=== PATIENT | female | born 1965 | race Caucasian/White ===

== ENCOUNTER → 2016-10-05 | Outpatient (CLI) | payer MEDICARE, MEDICAID ==
[~2016-10-05] MED LIST: ISOVUE-370 76% 100ML VIAL (Q9967) As Ordered ONE
--- NOTE | 2016-10-05 14:40 | REP ---
CT NECK WITH CONTRAST: HISTORY: Dysphonia. CONTRAST: Isovue 370, 75 mL. COMPARISON: 12/24/2015. Increased density is present in the preepiglottic , paralaryngeal and retropharyngeal spaces. There is thickening of the epiglottic and aryepiglottic folds. These findings are consistent with postradiation change. There is slight thickening of the lateral go of the hypopharynx. There is minimal mass effect on the airway. The nasopharynx and subglottic trachea are normal in appearance. The salivary and thyroid glands are normal. Small lymph nodes less than 1 cm in size are present in the internal jugular chains, posterior triangles, submandibular and submental areas. There is no adenopathy. Calcified atherosclerotic plaques are present at the carotid bifurcations. A 1.6 cm tracheal diverticulum is present along the right lateral aspect of the trachea and esophagus inferior to the thyroid gland. The lung apices are clear. The visualized sinuses are clear. IMPRESSION: 1. There are findings consistent with postradiation change. 2. There is slightly thickening of the lateral go of the hypopharynx that is suspicious for recurrent tumor. Signed by Ugo Estrada MD 10/05/2016 02:46 P
== END ==
LOC: M RAD 12:37
PROVIDERS: ATTEND Otolaryngology
DX: R93.8 Abnormal findings on diagnostic imaging of other specified body structures (principal); R49.0 Dysphonia
CPT/HCPCS: 70491; Q9967

== ENCOUNTER → 2016-11-04 | Day surgery (SDC) | payer MEDICARE, MEDICAID ==
[~2016-11-04] VITALS: Ht 160 cm; Wt 56.2 kg
[~2016-11-04] MED LIST changes: -ISOVUE-370 76% 100ML VIAL (Q9967) As Ordered ONE; +LIDOCAINE 2% INJ 100 MG/5 ML SDV (FOR ANES.) As Ordered ONE; +LR 1,000 ML IV SCH; +LYRI225C PO; +METH10TA2 PO; +METOCLOPRAMIDE INJ 10MG/2ML VIAL (J2765) IV PRN; +MIDAZOLAM INJ 2 MG/2 ML VIAL (J2250) As Ordered ONE; +OMEP40CA2 PO; +ONDANSETRON 4MG/2ML VIAL (J2405) As Ordered ONE; +ONDANSETRON 4MG/2ML VIAL (J2405) IV PRN; +PERC10TA17 PO; +PERCOCET 5MG/325MG TAB PO PRN; +PROPOFOL 200 MG/20 ML VIAL As Ordered ONE; +ROCURONIUM BROMIDE 50 MG/5 ML VIAL As Ordered ONE; +SUCCINYLCHOLINE 100 MG/5 ML SYRINGE (J0330) As Ordered ONE; +SUGAMMADEX SODIUM 500 MG/5 ML VIAL (BRIDION) As Ordered ONE; +ZOFR20TA PO; +dexameTHASONE 4 MG/ML 1ML VIAL (J1100) IV ONE; +ePHEDrine SULFATE 25 MG/5 ML(5MG/ML) SYRINGE As Ordered ONE; +fentaNYL 100 MCG/2 ML INJECTION (J3010) As Ordered ONE; +fentaNYL 250 MCG/5 ML INJECTION (J3010) As Ordered ONE
[2016-11-04] MEDS: LR 1,000 ML IV SCH ×2 (10:44→10:50)
[2016-11-04] MEDS: fentaNYL 100 MCG/2 ML INJECTION (J3010) IV PRN ×3 (13:30→13:50)
[2016-11-04 14:30] VITALS: BP 135/91
--- NOTE | 2016-11-05 20:52 | RO ---
DATE OF PROCEDURE: 11/04/2016 PREPROCEDURE DIAGNOSIS: Swelling of the left pharyngeal wall and also history of epiglottic squamous cell carcinoma, treated with chemo and radiation in 2010. Dysphonia. POSTPROCEDURE DIAGNOSIS: Swelling of the left pharyngeal wall and also history of epiglottic squamous cell carcinoma, treated with chemo and radiation in 2010. Dysphonia. PROCEDURE: Direct suspension microlaryngoscopy with biopsy of the left and right vocal cords and left aryepiglottic fold. SURGEON: Dr. Keo George PRODUCTION INSPECTOR: ANESTHESIA: General. CLINICAL PREAMBLE: This 50-year-old woman has had chemoradiation for epiglottic cancer in 2010. She was noted to have intermittent dysphonia. CT neck revealed fullness of the left pharyngeal wall. Management options including surgery listed above have been discussed. The patient understood and consented to the procedure. DESCRIPTION OF PROCEDURE: The patient was identified in preoperative holding and brought to the operating room in stable condition. In supine position on the operating table, general anesthesia was induced followed by orotracheal intubation without incident. The patient was prepped and draped in the usual fashion for the procedure. Bimanual palpation of the oral cavity and oropharynx, lateral and posterior pharyngeal wall revealed no discrete palpable nodule. The alveolar ridge was then protected using wet sponge. The Dedo-Pilling laryngoscope was introduced. Visualization of the mucosa of the oral cavity and oropharynx were unremarkable. Base of tongue appeared to be free of mucosal lesion. The supraglottis was noted to be erythematous consistent with postradiation changes. A small mucosal tear was noted over the left aryepiglottic fold. This was biopsied. The rigid laryngoscope was suspended on the Aden stand. Both vocal cords were found to be mildly erythematous. Biopsy was performed from the left and the right vocal cord as well. Both pyriform sinuses show evidence of redundant mucosa with no evidence of mucosal lesion or mass lesion. The postcricoid region was also free of mucosal lesion as well. Complete hemostasis was observed by placing cottonoid pledgets soaked in Afrin solution, placed on the biopsy sites. Photo documentation was also performed during the procedure with the use of a 5 mm 0-degree telescope. At the end of the procedure, sponge and instrument counts were correct. No complication was encountered. Estimated blood loss was less than 2 mL. General anesthesia was reversed and the patient was extubated and brought to the recovery room in stable condition. LETICIA
== END | disposition home or self-care (01) ==
LOC: M SDC 09:55
PROVIDERS: ATTEND Otolaryngology
DX: R22.1 Localized swelling, mass and lump, neck (principal); R49.0 Dysphonia; Z72.0 Tobacco use; J44.9 Chronic obstructive pulmonary disease, unspecified; K70.9 Alcoholic liver disease, unspecified; F10.10 Alcohol abuse, uncomplicated; Z85.21 Personal history of malignant neoplasm of larynx; Z92.3 Personal history of irradiation; Z92.21 Personal history of antineoplastic chemotherapy; K21.9 Gastro-esophageal reflux disease without esophagitis; Z79.899 Other long term (current) drug therapy
CPT/HCPCS: 31536; 88305; J0330; J1100; J2250; J2405; J3010

== ENCOUNTER 2017-02-04 12:00 | Outpatient (RCR) | payer MEDICARE, MEDICAID ==
[~2017-02-04 12:00] MED LIST changes: -LIDOCAINE 2% INJ 100 MG/5 ML SDV (FOR ANES.) As Ordered ONE; -LR 1,000 ML IV SCH; -METOCLOPRAMIDE INJ 10MG/2ML VIAL (J2765) IV PRN; -MIDAZOLAM INJ 2 MG/2 ML VIAL (J2250) As Ordered ONE; -ONDANSETRON 4MG/2ML VIAL (J2405) As Ordered ONE; -ONDANSETRON 4MG/2ML VIAL (J2405) IV PRN; -PERC10TA17 PO; +PERC10TA26 PO; -PERCOCET 5MG/325MG TAB PO PRN; -PROPOFOL 200 MG/20 ML VIAL As Ordered ONE; -ROCURONIUM BROMIDE 50 MG/5 ML VIAL As Ordered ONE; -SUCCINYLCHOLINE 100 MG/5 ML SYRINGE (J0330) As Ordered ONE; -SUGAMMADEX SODIUM 500 MG/5 ML VIAL (BRIDION) As Ordered ONE; -dexameTHASONE 4 MG/ML 1ML VIAL (J1100) IV ONE; -ePHEDrine SULFATE 25 MG/5 ML(5MG/ML) SYRINGE As Ordered ONE; -fentaNYL 100 MCG/2 ML INJECTION (J3010) As Ordered ONE; -fentaNYL 250 MCG/5 ML INJECTION (J3010) As Ordered ONE
== END 2017-02-25 ==
LOC: M ST 12:00
PROVIDERS: ATTEND Otolaryngology
DX: R49.0 Dysphonia (principal)

== ENCOUNTER 2020-11-16 13:47 | Emergency (ER) | payer MEDICARE, MEDICAID ==
[~2020-11-16] VITALS: Ht 160 cm; Wt 49.5 kg
[~2020-11-16 13:47] MED LIST changes: -OMEP40CA2 PO; +OMEP40CA97 PO; -ZOFR20TA PO; +ZOFR4TAB16 PO
[2020-11-16] MEDS ORDERED: PANTOPRAZOLE 40MG VIAL (C9113 PER 1) IV ONE (14:30)
[2020-11-16] MEDS ORDERED: NS 1,000 ML IV ONE (14:30)
[2020-11-16] MEDS ORDERED: METOCLOPRAMIDE INJ 10MG/2ML VIAL (J2765 PER 1) IV ONE (14:30)
--- NOTE | 2020-11-16 15:05 | REP ---
INDICATION: Abdominal Pain. COMPARISON: PA and lateral chest dated 08/05/2010. TECHNIQUE: PA chest single-view, abdomen two views, supine and upright. FINDINGS: PA chest: The lung lees are clear. The cardiac size is normal. The adele, mediastinum, and skeletal structures are unremarkable. There is no free subdiaphragmatic air. There is no change from the comparison study. Negative PA chest. Abdomen, supine and upright views: Bowel gas pattern is normal. There are pelvic calcifications, likely phleboliths. The skeletal structures and soft tissues otherwise are unremarkable. Negative supine and upright abdomen. IMPRESSION: Negative PA chest. Negative supine and upright abdomen. <Electronically signed by Marky Proctor > 11/16/20 [id number]
[2020-11-16 16:01] LABS: BASO # 0.1 10^3/uL (0.0-0.2); BASO % 0.5 % (0.0-1.0); EOS # 0.1 10^3/uL (0.0-0.5); EOS % 0.7 % (0.0-3.0); HEMATOCRIT 28.6 % (36.0-47.0); HEMOGLOBIN 9.1 g/dl (12.0-15.5); LYMPH # 1.2 10^3/uL (1.5-5.0); MEAN CORPUSCULAR HEMOGLOBIN 31.8 pg (27.0-33.0); MEAN CORPUSCULAR HGB CONC 31.8 g/dl (32.0-36.5); MONO % 10.7 % (2.0-8.0); NEUTROPHILS % 73.7 % (36.0-66.0); PLATELET COUNT, AUTOMATED 430 10^3/uL (150-450); RED BLOOD COUNT 2.86 10^6/uL (4.00-5.40); WHITE BLOOD COUNT 9.5 10^3/uL (4.0-10.0)
[2020-11-16 16:20] LABS: ALBUMIN 2.1 GM/DL (3.2-5.2); ALT/SGPT 69 U/L (12-78); BILIRUBIN,DIRECT < 0.1 MG/DL (0.0-0.2); BILIRUBIN,TOTAL 0.3 MG/DL (0.2-1.0); BLOOD UREA NITROGEN 10 MG/DL (7-18); CALCIUM LEVEL 8.8 MG/DL (8.5-10.1); CARBON DIOXIDE LEVEL 25 MEQ/L (21-32); CHLORIDE LEVEL 102 MEQ/L (98-107); CK-MB VALUE MASS < 1.0 NG/ML (<3.6); CPK CREATINE PHOSPHOKINASE 37 U/L (26-192); CREATININE FOR GFR 0.72 MG/DL (0.55-1.30); ETHYL ALCOHOL (ETHANOL) < 0.003 % (0.000-0.010); GLOMERULAR FILTRATION RATE > 60.0 (>51); GLUCOSE, FASTING 87 MG/DL (70-100); LIPASE 143 U/L (73-393); POTASSIUM SERUM 4.2 MEQ/L (3.5-5.1); SODIUM LEVEL 135 MEQ/L (136-145); TROPONIN I < 0.02 NG/ML (< 0.10)
[2020-11-16 17:49] VITALS: BP 95/52
--- NOTE | 2020-11-17 17:30 | ECGEPIP ---
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
== END 2020-11-16 17:50 | disposition home or self-care (01) ==
LOC: M ED 13:47
DX: R53.83 Other fatigue (principal); R00.0 Tachycardia, unspecified; Z98.84 Bariatric surgery status; F19.11 Other psychoactive substance abuse, in remission; F17.200 Nicotine dependence, unspecified, uncomplicated; Z88.6 Allergy status to analgesic agent
CPT/HCPCS: 74021; 80048; 80076; 82077; 82140; 82550; 82553; 83605; 83690; 84484; 85025; 93005; 96361; 96374; 96375; 99284; C9113; J2765

== ENCOUNTER 2020-11-25 08:27 | Emergency (ER) | payer MEDICARE, MEDICAID ==
[~2020-11-25] VITALS: Ht 160 cm; Wt 48.2 kg
[2020-11-25] MEDS ORDERED: LEVO25TA5 PO (08:51)
[2020-11-25] MEDS ORDERED: MAGN400T35 PO (08:51)
[2020-11-25] MEDS ORDERED: MIRA0.254 PO (08:51)
[2020-11-25] MEDS ORDERED: MULT400T10 PO (08:51)
[2020-11-25] MEDS ORDERED: THIA100T22 PO (08:51)
[2020-11-25] MEDS ORDERED: OMEP-221 PO (08:51)
[2020-11-25] MEDS ORDERED: FLUD0.1T PO (08:51)
[2020-11-25] MEDS ORDERED: FOLI1TAB11 PO (08:51)
[2020-11-25] MEDS ORDERED: FERR240T PO (08:51)
[2020-11-25] MEDS ORDERED: POTA20TA6 PO (08:51)
[2020-11-25] MEDS ORDERED: NS 500 ML IV ONE (08:55)
[2020-11-25] MEDS ORDERED: GI COCKTAIL 50ML BTL(HYOSCYAMINE/MAALOX/LIDOCAINE VISCOUS)(1:3:1) PO ONE (09:00)
--- NOTE | 2020-11-25 09:06 | REP ---
INDICATION: CHEST PAIN COMPARISON: 11/16/2020 TECHNIQUE: Portable AP view of the chest FINDINGS: The mediastinum and cardiac silhouette are stable and within normal limits for portable technique. The lung lees are clear without acute consolidation, effusion, or pneumothorax. Skeletal structures are intact. IMPRESSION: No acute cardiopulmonary process appreciated. <Electronically signed by Tim Geronimo > 11/25/20 [id number]
[2020-11-25 09:10] LABS: BASO % 0.4 % (0.0-1.0); EOS # 0.2 10^3/uL (0.0-0.5); EOS % 2.1 % (0.0-3.0); HEMATOCRIT 30.4 % (36.0-47.0); HEMOGLOBIN 9.9 g/dl (12.0-15.5); LYMPH # 1.5 10^3/uL (1.5-5.0); LYMPH % 19.7 % (24.0-44.0); MEAN CORPUSCULAR HEMOGLOBIN 31.6 pg (27.0-33.0); MEAN CORPUSCULAR HGB CONC 32.6 g/dl (32.0-36.5); MEAN CORPUSCULAR VOLUME 97.1 fl (80.0-96.0); MONO # 0.8 10^3/uL (0.0-0.8); MONO % 9.9 % (2.0-8.0); NEUTROPHILS # 5.2 10^3/uL (1.5-8.5); NEUTROPHILS % 67.4 % (36.0-66.0); PLATELET COUNT, AUTOMATED 427 10^3/uL (150-450); RED BLOOD COUNT 3.13 10^6/uL (4.00-5.40); WHITE BLOOD COUNT 7.8 10^3/uL (4.0-10.0)
[2020-11-25] MEDS ORDERED: POTASSIUM CHLORIDE 10 MEQ SR TABLET PO ONE (09:40)
[2020-11-25] MEDS ORDERED: ISOVUE-370 76% 100ML VIAL As Ordered ONE (09:47)
[2020-11-25 09:48] LABS: ALBUMIN 2.4 GM/DL (3.2-5.2); BILIRUBIN,DIRECT 0.1 MG/DL (0.0-0.2); BILIRUBIN,TOTAL 0.3 MG/DL (0.2-1.0); THYROID STIMULATING HORMONE 7.55 uIU/ML (0.358-3.740); TOTAL PROTEIN 6.3 GM/DL (6.4-8.2)
[2020-11-25] MEDS ORDERED: NORCO, ANEXSIA 5/325MG TABLET (HYDROcodone/ACETAMINOPHEN) PO ONE (11:25)
[2020-11-25 14:45] VITALS: BP 97/61
--- NOTE | 2020-11-25 14:57 | REP ---
INDICATION: CP/SOB, prior history carcinoma epiglottis. COMPARISON: Portable chest 11/25/2020, PA chest 11/16/2020. TECHNIQUE: CT angiogram chest performed following the intravenous administration of 75 cc of Isovue 370. Sagittal and coronal reconstruction images are performed. FINDINGS: Lungs: Show dependent atelectatic change posteriorly along the mid and lower lung zones in the major fissures. There is some curvilinear atelectatic change deep sulcus right lower lobe in the medial basal segment an ill-defined nodular density 6 mm abutting the major fissure in the lateral basal segment left lower lobe mid axillary line. This is seen on image 67 4.5 mm subpleural nodule image 64 posterior basal segment left lower lobe some patchy atelectatic change in the inferior lingular segment in the medial segment right middle lobe at the anterior lung base. These areas are adjacent prominent epicardial fat pads. Some emphysematous changes mid and upper lung zones. Some focal areas of pleural thickening posterolaterally in the left upper lung zone. Some mild cylindrical bronchiectatic changes are seen. No acute infiltrate or parenchymal mass. No pneumothorax. Mediastinum: No adenopathy. Pulmonary arteries: No evidence of pulmonary embolism. Lucy: No pathologic sized adenopathy. Axilla: No pathologic sized adenopathy. Pleura: No effusion. Some posterolateral pleural thickening upper lung zones bilaterally left greater than right. This is mild. Heart: Not enlarged. No pericardial thickening or effusion. Thoracic aorta: No aneurysm or dissection. Few scattered calcifications in the aortic arch. Upper abdominal structures: Unremarkable. No definite hiatal hernia. Visualized osseous structures: No spinal compression fracture, bony destructive lesions or other acute finding. IMPRESSION: No CT evidence of pulmonary embolism. No infiltrate seen. Dependent atelectatic changes, emphysematous changes mid upper lung zones, 6 mm lateral basal segment and 4.5 mm posterior basal segment subpleural nodules on the left lower lobe. Short interval follow-up CT recommended for these pulmonary nodules, 4-6 months. <Electronically signed by Curtis Cintron > 11/25/20 [id number]
--- NOTE | 2020-11-25 18:01 | ECGEPIP ---
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
--- NOTE | 2020-11-25 18:02 | ECGEPIP ---
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
--- NOTE | 2020-11-26 14:42 | ED PDOC ---
Post-Departure Follow-Up certified letter sent to pt re cta chest - needs fu. ask who pcp is and fax. if no pcp refer to [facility].Kay Navarro MD Nov 26, 2020 14:42
== END 2020-11-25 15:17 | disposition home or self-care (01) ==
LOC: M ED 08:27
DX: R91.1 Solitary pulmonary nodule (principal); R07.9 Chest pain, unspecified; K21.9 Gastro-esophageal reflux disease without esophagitis; J45.909 Unspecified asthma, uncomplicated; J44.9 Chronic obstructive pulmonary disease, unspecified; M79.7 Fibromyalgia; G89.29 Other chronic pain; M54.9 Dorsalgia, unspecified; F17.200 Nicotine dependence, unspecified, uncomplicated; Z79.899 Other long term (current) drug therapy; Z88.6 Allergy status to analgesic agent
CPT/HCPCS: 71045; 71275; 80047; 80076; 83690; 84443; 84484; 85025; 93005; 93041; 94760; 96360; 99285; Q9967

== ENCOUNTER → 2022-05-17 | Outpatient (CLI) | payer MEDICARE, MEDICAID ==
[~2022-05-17] MED LIST changes: +FERR240T PO; +FLUD0.1T PO; +FOLI1TAB11 PO; +LEVO25TA5 PO; +MAGN400T35 PO; +METH-1177 PO; -METH10TA2 PO; +MIRA0.254 PO; +MULT400T10 PO; +OMEP40CA4 PO; +OMEP40CA5 PO; -OMEP40CA97 PO; +POTA-151 PO; +THIA100T22 PO
== END ==
LOC: M PLARAD 12:57
PROVIDERS: ATTEND Internal Medicine Critical Care Medicine
DX: R91.1 Solitary pulmonary nodule (principal)
CPT/HCPCS: 78815; A9552

== ENCOUNTER → 2022-09-10 | Outpatient (CLI) | payer MEDICARE, MEDICAID ==
[~2022-09-10] MED LIST changes: +ACET-910 PO; +B COCAP4 PO; +BUPR75TA5 PO; +FERR32TA PO; +FLEEENE12 PR; +GABA-1171 PO; +HOME MED LIST COMPLETE! XX SCH; +LIDOCAINE 1% MDV 20ML VIAL As Ordered ONE; +MELA3TAB30 PO; +MILK400S12 PO; +NICOINH INH; +PROP20TA82 PO; +SERT-141 PO; +SPIR1CAP INH; +VENTAER INH; +[UNRECOGNIZED DRUG - CODE] TOP; +[UNRECOGNIZED DRUG - OTHER] TOP
[2022-09-10 11:44] VITALS: BP 102/60
== END ==
LOC: M IRPRO 07:45
PROVIDERS: ATTEND Internal Medicine Critical Care Medicine
DX: R91.1 Solitary pulmonary nodule (principal)

== ENCOUNTER → 2022-10-20 | Outpatient (CLI) | payer MEDICARE, MEDICAID ==
[~2022-10-20] MED LIST changes: +CETACRE3 EXT; +DICL1GEL3 TOP; -HOME MED LIST COMPLETE! XX SCH; +LIDO5DIS41 TOP; -LIDOCAINE 1% MDV 20ML VIAL As Ordered ONE; +MEGE1SUS8 PO; +MEGE400S10 PO; +NIRM1TAB PO; +OXYC-517; +TRAM50TA2 PO; +VITATAB73 PO; +ZOLO100T PO
== END ==
LOC: M ONCR 12:31
PROVIDERS: ATTEND Specialist
DX: C34.32 Malignant neoplasm of lower lobe, left bronchus or lung (principal); F10.20 Alcohol dependence, uncomplicated; J44.9 Chronic obstructive pulmonary disease, unspecified; Z79.890 Hormone replacement therapy; Z79.899 Other long term (current) drug therapy; Z80.1 Family history of malignant neoplasm of trachea, bronchus and lung; Z85.21 Personal history of malignant neoplasm of larynx; Z88.6 Allergy status to analgesic agent; Z87.891 Personal history of nicotine dependence; Z92.21 Personal history of antineoplastic chemotherapy; Z92.3 Personal history of irradiation

== ENCOUNTER → 2022-10-27 | Outpatient (CLI) | payer MEDICARE, MEDICAID ==
[~2022-10-27] MED LIST changes: -CETACRE3 EXT; -DICL1GEL3 TOP; -LIDO5DIS41 TOP; -MEGE1SUS8 PO; -MEGE400S10 PO; -NIRM1TAB PO; -TRAM50TA2 PO; -VITATAB73 PO; -ZOLO100T PO
== END ==
LOC: M ONCR 13:51
PROVIDERS: ATTEND General Practice
DX: C34.32 Malignant neoplasm of lower lobe, left bronchus or lung (principal); C79.51 Secondary malignant neoplasm of bone; F10.10 Alcohol abuse, uncomplicated; F17.218 Nicotine dependence, cigarettes, with other nicotine-induced disorders; J44.9 Chronic obstructive pulmonary disease, unspecified; R91.8 Other nonspecific abnormal finding of lung field; Z79.890 Hormone replacement therapy; Z79.899 Other long term (current) drug therapy; Z85.21 Personal history of malignant neoplasm of larynx; Z92.21 Personal history of antineoplastic chemotherapy; Z92.3 Personal history of irradiation

== ENCOUNTER 2022-11-03 17:11 | Inpatient (IN) | payer MEDICARE, MEDICAID ==
[~2022-11-03] VITALS: Ht 154.9 cm; Wt 48.6 kg
[2022-11-03] VITALS (11 sets, daily range): BP systolic 70–136; BP diastolic 53–68
[~2022-11-03 17:11] MED LIST changes: -ACETAMINOPHEN TAB 650MG DOSE (2X325MG) PO PRN; -CETACRE3 EXT; -DICL1GEL3 TOP; -MEGE400S10 PO; -VITATAB73 PO; -ZOLO100T PO; -traMADol 50 MG TAB PO ONE
[2022-11-03] MEDS ORDERED: IPRATROPIUM 0.5MG/ALBUTEROL 2.5MG INH SOL UD 3ML (DUONEB) NEB PRN (17:25)
[2022-11-03] MEDS ORDERED: oxyCODONE 5MG TAB PO PRN (17:25)
[2022-11-03] MEDS ORDERED: ACETAMINOPHEN TAB 650MG DOSE (2X325MG) PO PRN (17:25)
[2022-11-03] MEDS ORDERED: flumazeniL 0.5MG/5ML VIAL IV PRN (18:15)
[2022-11-03] MEDS ORDERED: MIDAZOLAM 5MG 5ML VIAL (FOR CHEST TUBE INSERTIONS) IV PRN (18:15)
[2022-11-03] MEDS ORDERED: LIDOCAINE 1% MDV 20ML VIAL SC PRN (18:15)
[2022-11-03 18:19] LABS: HEMATOCRIT 33.6 % (36.0-47.0); HEMOGLOBIN 10.6 g/dl (12.0-15.5); MEAN CORPUSCULAR HEMOGLOBIN 26.4 pg (27.0-33.0); MEAN CORPUSCULAR HGB CONC 31.5 g/dl (32.0-36.5); MEAN CORPUSCULAR VOLUME 83.8 fl (80.0-96.0); PLATELET COUNT, AUTOMATED 531 10^3/uL (150-450); RED BLOOD COUNT 4.01 10^6/uL (4.00-5.40); WHITE BLOOD COUNT 19.8 10^3/uL (4.0-10.0)
[2022-11-03 18:44] LABS: ALBUMIN 2.4 G/DL (3.2-5.2); ALKALINE PHOSPHATASE 89 U/L (46-116); ALT/SGPT < 9 U/L (7.0-40); AST/SGOT < 8 U/L (<34); BILIRUBIN,TOTAL 0.2 MG/DL (0.3-1.2); BLOOD UREA NITROGEN 23 MG/DL (9-23); CALCIUM LEVEL 8.5 MG/DL (8.5-10.1); CARBON DIOXIDE LEVEL 25 MMOL/L (20-31); CHLORIDE LEVEL 99 MMOL/L (98-107); CREATININE FOR GFR 0.81 MG/DL (0.55-1.30); GLOMERULAR FILTRATION RATE > 60.0 (>51); GLUCOSE, FASTING 85 MG/DL (60-100); POTASSIUM SERUM 3.4 MMOL/L (3.5-5.1); SODIUM LEVEL 136 MMOL/L (136-145); TOTAL PROTEIN 6.3 G/DL (5.7-8.2)
[2022-11-03 18:48] LABS: INR 1.18; PROTHROMBIN TIME 15.2 SECONDS (12.5-14.5)
[2022-11-03 18:49] LABS: PARTIAL THROMBOPLASTIN TIME 34.9 SECONDS (24.8-34.2)
[2022-11-03] MEDS ORDERED: KETOROLAC 30 MG/ML 1ML VIAL As Ordered ONE (19:15)
[2022-11-03] MEDS ORDERED: LEVALBUTEROL 1.25MG 0.5ML CONCENTRATE NEB NEB PRN (19:35)
[2022-11-03] MEDS ORDERED: D5W/0.9% SODIUM CHLORIDE 1,000 ML IV SCH (19:35)
[2022-11-03] MEDS ORDERED: BISACODYL 10MG SUPP PR PRN (19:35)
[2022-11-03] MEDS ORDERED: ONDANSETRON 4MG 2ML VIAL IV PRN (19:35)
[2022-11-03] MEDS: LEVALBUTEROL 1.25MG 0.5ML CONCENTRATE NEB NEB SCH (20:00)
[2022-11-03] MEDS ORDERED: IPRATROPIUM 0.5MG/ALBUTEROL 2.5MG INH SOL UD 3ML (DUONEB) NEB SCH (20:00)
[2022-11-03] MEDS: HEPARIN SOD (PORCINE) 5000UNITS/ML 1ML VIAL/SYRINGE SC SCH (21:00)
[2022-11-03] MEDS ORDERED: KETOROLAC 30 MG/ML 1ML VIAL IV ONE (21:00)
[2022-11-03] MEDS ORDERED: TRAM50TA2 PO (21:28)
[2022-11-03] MEDS ORDERED: VITATAB73 PO (21:28)
[2022-11-03] MEDS ORDERED: ZOLO100T PO (21:28)
[2022-11-03] MEDS ORDERED: CETACRE3 EXT (21:28)
[2022-11-03] MEDS ORDERED: MEGE400S10 PO (21:28)
[2022-11-03] MEDS ORDERED: DICL1GEL3 TOP (21:28)
[2022-11-03] MEDS ORDERED: HOME MED LIST COMPLETE! XX SCH (21:30)
[2022-11-03] MEDS ORDERED: NS 1,000 ML IV ONE (21:35)
[2022-11-03] MEDS: RAMELTEON 8 MG TAB (ROZEREM) PO SCH (23:17)
[2022-11-03] MEDS: DOCUSATE SODIUM 100MG CAPSULE PO SCH (23:19)
[2022-11-03] MEDS ORDERED: NS 500 ML IV ONE (23:20)
[2022-11-04] VITALS (8 sets, daily range): BP systolic 80–122; BP diastolic 58–73
[2022-11-04] MEDS ORDERED: QUEtiapine FUMARATE 25 MG TAB PO ONE
[2022-11-04] MEDS: LEVALBUTEROL 1.25MG 0.5ML CONCENTRATE NEB NEB SCH (02:00)
[2022-11-04] MEDS: KETOROLAC 30 MG/ML 1ML VIAL IV SCH ×4 (04:00→21:53)
[2022-11-04 05:10] LABS: HEMATOCRIT 26.5 % (36.0-47.0); MEAN CORPUSCULAR HEMOGLOBIN 26.5 pg (27.0-33.0); MEAN CORPUSCULAR HGB CONC 31.3 g/dl (32.0-36.5); MEAN CORPUSCULAR VOLUME 84.7 fl (80.0-96.0); RED BLOOD COUNT 3.13 10^6/uL (4.00-5.40); WHITE BLOOD COUNT 13.5 10^3/uL (4.0-10.0)
[2022-11-04 05:27] LABS: HEMOGLOBIN 8.3 g/dl (12.0-15.5)
[2022-11-04 05:28] LABS: PLATELET COUNT, AUTOMATED 430 10^3/uL (150-450)
[2022-11-04 05:34] LABS: BLOOD UREA NITROGEN 22 MG/DL (9-23); CALCIUM LEVEL 7.2 MG/DL (8.5-10.1); CARBON DIOXIDE LEVEL 21 MMOL/L (20-31); CHLORIDE LEVEL 107 MMOL/L (98-107); CREATININE FOR GFR 0.74 MG/DL (0.55-1.30); GLOMERULAR FILTRATION RATE > 60.0 (>51); GLUCOSE, FASTING 99 MG/DL (60-100); POTASSIUM SERUM 3.4 MMOL/L (3.5-5.1); SODIUM LEVEL 137 MMOL/L (136-145)
[2022-11-04] MEDS ORDERED: LORazepam 0.5 MG TAB PO PRN (07:35)
[2022-11-04] MEDS: COMBIVENT RESPIMAT 100-20MCG INHALER 4GM INH SCH ×2 (08:13→19:46)
[2022-11-04] MEDS: GABAPENTIN 100 MG CAP PO SCH ×3 (08:19→21:51)
[2022-11-04] MEDS: HEPARIN SOD (PORCINE) 5000UNITS/ML 1ML VIAL/SYRINGE SC SCH ×2 (08:19→21:51)
[2022-11-04] MEDS: DOCUSATE SODIUM 100MG CAPSULE PO SCH ×2 (08:19→21:57)
[2022-11-04] MEDS: FOLIC ACID 1MG TAB PO SCH (08:20)
[2022-11-04] MEDS: SERTRALINE 100 MG TAB PO SCH (08:20)
[2022-11-04] MEDS: LEVOTHYROXINE 50MCG TABLET (0.05MG) PO SCH (08:20)
[2022-11-04] MEDS: THIAMINE 100 MG TAB PO SCH (08:20)
[2022-11-04] MEDS: PANTOPRAZOLE 40MG TAB (PROTONIX) PO SCH (08:20)
[2022-11-04] MEDS: MAGNESIUM OXIDE 400MG TAB (MAG-OX) PO SCH (08:20)
[2022-11-04] MEDS: MOM 30ML SUSPENSION UDC PO SCH (08:23)
[2022-11-04] MEDS ORDERED: buPROPion **XL** TABLET 150MG (WELLBUTRIN XL) PO SCH (09:00)
[2022-11-04] MEDS ORDERED: ALTEPLASE 2MG/2ML VIAL XX ONE (09:00)
[2022-11-04] MEDS ORDERED: OLANZapine INTRAMUSCULAR 10MG VIAL IM ONE (09:05)
[2022-11-04] MEDS ORDERED: SODIUM CHLORIDE 0.9% INJ 10 ML SYR IV ONE (09:50)
[2022-11-04] MEDS: LORazepam 2 MG/ML 1ML VIAL IV PRN ×2 (10:59→21:52)
[2022-11-04] MEDS ORDERED: ISOVUE-370 76% 100ML VIAL As Ordered ONE (13:29)
[2022-11-04] MEDS: RAMELTEON 8 MG TAB (ROZEREM) PO SCH (21:51)
[2022-11-05] VITALS: BP 92/60
[2022-11-05] MEDS: LORazepam 2 MG/ML 1ML VIAL IV PRN (03:29)
[2022-11-05] MEDS: KETOROLAC 30 MG/ML 1ML VIAL IV SCH ×4 (03:30→21:09)
[2022-11-05 03:55] VITALS: BP 120/77
[2022-11-05] MEDS: LEVOTHYROXINE 50MCG TABLET (0.05MG) PO SCH ×3 (06:07→07:45)
[2022-11-05] MEDS: GABAPENTIN 100 MG CAP PO SCH ×4 (06:07→21:09)
[2022-11-05 06:27] LABS: HEMATOCRIT 29.6 % (36.0-47.0); HEMOGLOBIN 9.2 g/dl (12.0-15.5); MEAN CORPUSCULAR HEMOGLOBIN 26.4 pg (27.0-33.0); MEAN CORPUSCULAR HGB CONC 31.1 g/dl (32.0-36.5); MEAN CORPUSCULAR VOLUME 85.1 fl (80.0-96.0); PLATELET COUNT, AUTOMATED 500 10^3/uL (150-450); RED BLOOD COUNT 3.48 10^6/uL (4.00-5.40); WHITE BLOOD COUNT 20.5 10^3/uL (4.0-10.0)
[2022-11-05 07:09] LABS: ALBUMIN 1.8 G/DL (3.2-5.2); ALKALINE PHOSPHATASE 74 U/L (46-116); ALT/SGPT < 9 U/L (7.0-40); AST/SGOT 10 U/L (<34); BILIRUBIN,DIRECT 0.2 MG/DL (<0.4); BILIRUBIN,TOTAL 0.3 MG/DL (0.3-1.2); BLOOD UREA NITROGEN 18 MG/DL (9-23); CALCIUM LEVEL 8.1 MG/DL (8.5-10.1); CARBON DIOXIDE LEVEL 24 MMOL/L (20-31); CHLORIDE LEVEL 108 MMOL/L (98-107); CREATININE FOR GFR 0.64 MG/DL (0.55-1.30); GLOMERULAR FILTRATION RATE > 60.0 (>51); GLUCOSE, FASTING 92 MG/DL (60-100); POTASSIUM SERUM 3.9 MMOL/L (3.5-5.1); SODIUM LEVEL 141 MMOL/L (136-145); TOTAL PROTEIN 5.2 G/DL (5.7-8.2)
[2022-11-05] MEDS: COMBIVENT RESPIMAT 100-20MCG INHALER 4GM INH SCH ×2 (07:24→20:00)
[2022-11-05] MEDS ORDERED: REMDESIVIR 100 MG in NS 250 ML IV SCH (07:50)
[2022-11-05 08:04] VITALS: BP 95/65
[2022-11-05] MEDS ORDERED: SODIUM CHLORIDE 0.9% INJ 10 ML SYR IV SCH (08:50)
[2022-11-05] MEDS ORDERED: HALOPERIDOL 5MG/ML 1ML VIAL IM PRN (09:00)
[2022-11-05] MEDS: MAGNESIUM OXIDE 400MG TAB (MAG-OX) PO SCH (09:13)
[2022-11-05] MEDS: SERTRALINE 100 MG TAB PO SCH (09:13)
[2022-11-05] MEDS: PANTOPRAZOLE 40MG TAB (PROTONIX) PO SCH (09:13)
[2022-11-05] MEDS: THIAMINE 100 MG TAB PO SCH (09:14)
[2022-11-05] MEDS: FOLIC ACID 1MG TAB PO SCH (09:14)
[2022-11-05] MEDS: MOM 30ML SUSPENSION UDC PO SCH (09:14)
[2022-11-05] MEDS: HEPARIN SOD (PORCINE) 5000UNITS/ML 1ML VIAL/SYRINGE SC SCH (09:14)
[2022-11-05] MEDS: DOCUSATE SODIUM 100MG CAPSULE PO SCH ×2 (09:14→20:50)
[2022-11-05 11:47] VITALS: BP 100/60
[2022-11-05] MEDS: MORPHINE 10MG/0.5ML ORAL CONCENTRATE SOLUTION U/D SL PRN ×2 (17:49→22:24)
[2022-11-06] MEDS: KETOROLAC 30 MG/ML 1ML VIAL IV SCH ×4 (03:26→20:59)
[2022-11-06] MEDS: MORPHINE 10MG/0.5ML ORAL CONCENTRATE SOLUTION U/D SL PRN ×4 (05:05→23:19)
[2022-11-06] MEDS: GABAPENTIN 100 MG CAP PO SCH ×3 (05:05→21:01)
[2022-11-06] MEDS: COMBIVENT RESPIMAT 100-20MCG INHALER 4GM INH SCH ×2 (08:00→19:30)
[2022-11-06] MEDS: PANTOPRAZOLE 40MG TAB (PROTONIX) PO SCH (08:04)
[2022-11-06] MEDS: DOCUSATE SODIUM 100MG CAPSULE PO SCH ×2 (08:04→20:59)
[2022-11-06] MEDS: SERTRALINE 100 MG TAB PO SCH (08:04)
[2022-11-06] MEDS: MOM 30ML SUSPENSION UDC PO SCH (08:06)
[2022-11-06] MEDS: MAGNESIUM OXIDE 400MG TAB (MAG-OX) PO SCH (08:06)
[2022-11-06] MEDS: LORazepam 2 MG/ML 1ML VIAL IV PRN (22:16)
[2022-11-07] MEDS: KETOROLAC 30 MG/ML 1ML VIAL IV SCH ×4 (03:07→21:04)
[2022-11-07] MEDS: MORPHINE 10MG/0.5ML ORAL CONCENTRATE SOLUTION U/D SL PRN ×6 (04:32→23:57)
[2022-11-07] MEDS: GABAPENTIN 100 MG CAP PO SCH ×3 (05:00→21:04)
[2022-11-07] MEDS: COMBIVENT RESPIMAT 100-20MCG INHALER 4GM INH SCH ×2 (08:00→19:13)
[2022-11-07] MEDS: SERTRALINE 100 MG TAB PO SCH (08:15)
[2022-11-07] MEDS: PANTOPRAZOLE 40MG TAB (PROTONIX) PO SCH (08:15)
[2022-11-07] MEDS: MAGNESIUM OXIDE 400MG TAB (MAG-OX) PO SCH (08:15)
[2022-11-07] MEDS: DOCUSATE SODIUM 100MG CAPSULE PO SCH ×2 (08:15→21:04)
[2022-11-07] MEDS: MOM 30ML SUSPENSION UDC PO SCH (08:16)
[2022-11-08] MEDS: KETOROLAC 30 MG/ML 1ML VIAL IV SCH ×4 (02:01→20:06)
[2022-11-08] MEDS: MORPHINE 10MG/0.5ML ORAL CONCENTRATE SOLUTION U/D SL PRN ×4 (05:03→15:18)
[2022-11-08] MEDS: GABAPENTIN 100 MG CAP PO SCH ×3 (05:03→22:13)
[2022-11-08] MEDS: COMBIVENT RESPIMAT 100-20MCG INHALER 4GM INH SCH ×2 (07:31→19:28)
[2022-11-08] MEDS: PANTOPRAZOLE 40MG TAB (PROTONIX) PO SCH (08:05)
[2022-11-08] MEDS: SERTRALINE 100 MG TAB PO SCH (08:06)
[2022-11-08] MEDS: DOCUSATE SODIUM 100MG CAPSULE PO SCH ×2 (08:10→20:03)
[2022-11-08] MEDS: MAGNESIUM OXIDE 400MG TAB (MAG-OX) PO SCH (08:10)
[2022-11-08] MEDS: MOM 30ML SUSPENSION UDC PO SCH (08:11)
[2022-11-08] MEDS ORDERED: LORA2CON5 PO (09:47)
[2022-11-08] MEDS ORDERED: MORP1SOL SL (09:47)
[2022-11-09] MEDS: MORPHINE 10MG/0.5ML ORAL CONCENTRATE SOLUTION U/D SL PRN ×2 (03:36→08:49)
[2022-11-09] MEDS: GABAPENTIN 100 MG CAP PO SCH (05:32)
[2022-11-09] MEDS: COMBIVENT RESPIMAT 100-20MCG INHALER 4GM INH SCH (07:11)
[2022-11-09] MEDS: PANTOPRAZOLE 40MG TAB (PROTONIX) PO SCH (08:48)
[2022-11-09] MEDS: SERTRALINE 100 MG TAB PO SCH (08:48)
[2022-11-09] MEDS: MAGNESIUM OXIDE 400MG TAB (MAG-OX) PO SCH (08:48)
[2022-11-09] MEDS: DOCUSATE SODIUM 100MG CAPSULE PO SCH (08:48)
[2022-11-09] MEDS: MOM 30ML SUSPENSION UDC PO SCH ×2 (08:49→08:52)
[2022-11-09] MEDS: LORazepam 2 MG/ML 1ML VIAL IV PRN (09:37)
[2022-11-09] MEDS ORDERED: ONDANSETRON 4MG ORAL DISINTEGRATING TAB SL PRN (09:40)
== END 2022-11-09 11:15 | DRG 180 ==
LOC: M PCU 17:47 → M MS5PR 11-08 20:40
PROVIDERS: ADMIT Family Medicine; ATTEND Student in an Organized Health Care Education/Training Program
PROC: 0W9B30Z Drainage of Left Pleural Cavity with Drainage Device, Percutaneous Approach (ICD-10-PCS; principal; 2022-11-04)
PROC: 3E0L3GC Introduction of Other Therapeutic Substance into Pleural Cavity, Percutaneous Approach (ICD-10-PCS; 2022-11-04)
DX: C34.32 Malignant neoplasm of lower lobe, left bronchus or lung (principal); U07.1 COVID-19; G93.41 Metabolic encephalopathy; J91.0 Malignant pleural effusion; J95.811 Postprocedural pneumothorax; C79.51 Secondary malignant neoplasm of bone; Z85.21 Personal history of malignant neoplasm of larynx; Z92.21 Personal history of antineoplastic chemotherapy; Z92.3 Personal history of irradiation; F32.A Depression, unspecified; R41.0 Disorientation, unspecified; J44.9 Chronic obstructive pulmonary disease, unspecified; G25.81 Restless legs syndrome; E03.9 Hypothyroidism, unspecified; D50.9 Iron deficiency anemia, unspecified; K59.09 Other constipation; F17.290 Nicotine dependence, other tobacco product, uncomplicated; Z88.6 Allergy status to analgesic agent; Z66 Do not resuscitate; Z90.49 Acquired absence of other specified parts of digestive tract; Z79.890 Hormone replacement therapy; Z79.899 Other long term (current) drug therapy; Z78.1 Physical restraint status

== ENCOUNTER → 2022-11-03 | Outpatient (CLI) | payer MEDICARE, MEDICAID ==
[~2022-11-03] MED LIST changes: +ACETAMINOPHEN TAB 650MG DOSE (2X325MG) PO PRN; +CETACRE3 EXT; +DICL1GEL3 TOP; +LIDO5DIS41 TOP; +MEGE1SUS8 PO; +MEGE400S10 PO; +NIRM1TAB PO; +TRAM50TA2 PO; +VITATAB73 PO; +ZOLO100T PO; +traMADol 50 MG TAB PO ONE
[2022-11-03 17:15] VITALS: BP 110/74
== END ==
LOC: M IRPRO 11:16
PROVIDERS: ATTEND General Practice
DX: J90 Pleural effusion, not elsewhere classified (principal); C34.32 Malignant neoplasm of lower lobe, left bronchus or lung; J95.811 Postprocedural pneumothorax